=== PATIENT | male | born 1945 | race Asian ===

== ENCOUNTER 2017-09-23 11:36 | Emergency (ER) | payer OTHER ==
[~2017-09-23] VITALS: Ht 182.9 cm; Wt 88.5 kg
[~2017-09-23 11:36] MED LIST: CELLCEPT500 MG OR; CLONIDINE0.3 MG PO; CLOP75TA2 PO; LABETALOL300 MG OR; MAGOX 400400 MG PO; MINO10TA PO; NEXIUM20 M1 PO; TYLENOL EXTRA500 MG OR
[2017-09-23 11:54] VITALS: BP 148/62; TEMP 98.4
[2017-09-23 12:21] LABS: PLATELET COUNT 217 K/uL (142-355)
[2017-09-23 12:30] LABS: POTASSIUM 4.3 mmol/L (3.6-5.2)
== END 2017-09-23 13:20 | disposition home or self-care (01) ==
LOC: ED 11:36
DX: H53.2 Diplopia (principal); J32.0 Chronic maxillary sinusitis; E11.9 Type 2 diabetes mellitus without complications
CPT/HCPCS: 36415; 80053; 83036; 85027; 93005; 99283

== ENCOUNTER 2018-01-16 15:40 | Outpatient (CLI) | payer OTHER | END 2018-01-16 21:59 | disposition home or self-care (01) | LOC: LABW 15:40 | DX: Z79.891 Long term (current) use of opiate analgesic (principal); Z51.81 Encounter for therapeutic drug level monitoring | CPT/HCPCS: 80307 ==

== ENCOUNTER 2018-01-25 14:54 | Outpatient (CLI) | payer OTHER | END 2018-01-25 22:07 | disposition home or self-care (01) | LOC: RAD 14:54 | DX: M25.552 Pain in left hip (principal); M25.551 Pain in right hip ==

== ENCOUNTER 2018-02-26 12:50 | Outpatient (CLI) | payer OTHER ==
[2018-02-26 13:19] LABS: PLATELET COUNT 243 K/uL (142-355)
[2018-02-26 13:33] LABS: POTASSIUM 4.6 mmol/L (3.6-5.2)
== END 2018-02-26 20:22 | disposition home or self-care (01) ==
LOC: LABW 12:50
PROVIDERS: Internal Medicine Nephrology
DX: I10 Essential (primary) hypertension (principal); E11.9 Type 2 diabetes mellitus without complications; E55.9 Vitamin D deficiency, unspecified
CPT/HCPCS: 36415; 80053; 80061; 80197; 82306; 82570; 83970; 84100; 84155; 85027

== ENCOUNTER 2018-07-20 13:04 | Outpatient (CLI) | payer OTHER ==
[2018-07-20 13:57] LABS: POTASSIUM 5.1 mmol/L (3.6-5.2)
[2018-07-20 14:00] LABS: PLATELET COUNT 262 K/uL (142-355)
== END 2018-07-20 19:26 | disposition home or self-care (01) ==
LOC: LABW 13:04
PROVIDERS: Internal Medicine
DX: R79.89 Other specified abnormal findings of blood chemistry (principal)
CPT/HCPCS: 36415; 80053; 85027

== ENCOUNTER 2018-08-29 09:56 | Outpatient (CLI) | payer OTHER ==
[2018-08-29 10:33] LABS: PLATELET COUNT 208 K/uL (142-355)
[2018-08-29 10:53] LABS: POTASSIUM 4.4 mmol/L (3.6-5.2)
== END 2018-08-29 19:36 | disposition home or self-care (01) ==
LOC: LABW 09:56
PROVIDERS: Internal Medicine Nephrology
DX: I10 Essential (primary) hypertension (principal); Z94.0 Kidney transplant status; E11.9 Type 2 diabetes mellitus without complications
CPT/HCPCS: 36415; 80053; 80061; 80197; 82570; 83970; 84100; 84155; 84436; 84443; 84479; 85027

== ENCOUNTER 2018-11-26 12:55 | Outpatient (CLI) | payer OTHER ==
[2018-11-26 14:03] LABS: PLATELET COUNT 227 K/uL (142-355)
== END 2018-11-26 20:02 | disposition home or self-care (01) ==
LOC: LABW 12:55
PROVIDERS: Internal Medicine Hematology & Oncology
DX: C61 Malignant neoplasm of prostate (principal); E61.1 Iron deficiency
CPT/HCPCS: 36415; 84153; 85027

== ENCOUNTER 2019-01-22 11:04 | Outpatient (CLI) | payer OTHER ==
[2019-01-22 11:51] LABS: PLATELET COUNT 263 K/uL (142-355)
[2019-01-22 12:19] LABS: POTASSIUM 5.5 mmol/L (3.6-5.2)
== END 2019-01-22 22:47 | disposition home or self-care (01) ==
LOC: LABW 11:04
PROVIDERS: Internal Medicine Nephrology
DX: I12.9 Hypertensive chronic kidney disease with stage 1 through stage 4 chronic kidney disease, or unspecified chronic kidney disease (principal); N18.9 Chronic kidney disease, unspecified; Z94.0 Kidney transplant status; I73.9 Peripheral vascular disease, unspecified; F17.200 Nicotine dependence, unspecified, uncomplicated; E55.9 Vitamin D deficiency, unspecified; E11.9 Type 2 diabetes mellitus without complications
CPT/HCPCS: 36415; 80053; 84436; 84443; 84479; 85027

== ENCOUNTER 2019-01-25 08:14 | Outpatient (CLI) | payer OTHER ==
[2019-01-25 10:22] LABS: POTASSIUM 5.1 mmol/L (3.6-5.2)
== END 2019-01-25 19:30 | disposition home or self-care (01) ==
LOC: LABW 08:14
PROVIDERS: Internal Medicine
DX: N19 Unspecified kidney failure (principal)
CPT/HCPCS: 36415; 80048

== ENCOUNTER 2019-02-13 09:40 | Outpatient (CLI) | payer OTHER ==
[2019-02-13 09:57] LABS: PLATELET COUNT 239 K/uL (142-355)
[2019-02-13 10:07] LABS: POTASSIUM 5.2 mmol/L (3.6-5.2)
== END 2019-02-13 22:23 | disposition home or self-care (01) ==
LOC: LABW 09:40
PROVIDERS: Internal Medicine Nephrology
DX: I12.9 Hypertensive chronic kidney disease with stage 1 through stage 4 chronic kidney disease, or unspecified chronic kidney disease (principal); N18.9 Chronic kidney disease, unspecified; Z94.0 Kidney transplant status; I73.9 Peripheral vascular disease, unspecified; F17.200 Nicotine dependence, unspecified, uncomplicated; E11.9 Type 2 diabetes mellitus without complications; E55.9 Vitamin D deficiency, unspecified
CPT/HCPCS: 36415; 80053; 81000; 82570; 84100; 84155; 85027

== ENCOUNTER 2019-02-26 13:23 | Outpatient (CLI) | payer OTHER ==
[2019-02-26 13:50] LABS: PLATELET COUNT 247 K/uL (142-355)
== END 2019-02-26 19:25 | disposition home or self-care (01) ==
LOC: LABW 13:23
PROVIDERS: Internal Medicine Hematology & Oncology
DX: C61 Malignant neoplasm of prostate (principal); E61.1 Iron deficiency
CPT/HCPCS: 36415; 84153; 85027

== ENCOUNTER 2019-04-30 11:33 | Outpatient (CLI) | payer OTHER ==
[2019-04-30 12:06] LABS: PLATELET COUNT 222 K/uL (142-355)
[2019-04-30 12:21] LABS: POTASSIUM 4.9 mmol/L (3.6-5.2)
== END 2019-04-30 22:32 | disposition home or self-care (01) ==
LOC: LABW 11:33
PROVIDERS: Nurse Practitioner Family
DX: N19 Unspecified kidney failure (principal); R79.89 Other specified abnormal findings of blood chemistry; Z79.891 Long term (current) use of opiate analgesic
CPT/HCPCS: 36415; 80048; 80069; 84550; 85027; 85651; 86140

== ENCOUNTER 2019-05-28 18:11 | Outpatient (CLI) | payer OTHER | END 2019-05-28 23:59 | LOC: LAB 18:11 | DX: C61 Malignant neoplasm of prostate (principal) | CPT/HCPCS: 36415; 84153 ==

== ENCOUNTER 2019-07-25 15:43 | Emergency (ER) | payer OTHER ==
[~2019-07-25] VITALS: Ht 182.9 cm; Wt 93.4 kg
[2019-07-25 17:11] LABS: SODIUM 134 mmol/L (136-145)
[2019-07-25 17:40] LABS: PLATELET COUNT 244 K/uL (142-355)
[2019-07-25 19:03] VITALS: BP 125/76; TEMP 98.1
== END 2019-07-25 19:04 | disposition home or self-care (01) ==
LOC: ED 15:43
PROVIDERS: Emergency Medicine
DX: S09.8XXA Other specified injuries of head, initial encounter (principal); E11.649 Type 2 diabetes mellitus with hypoglycemia without coma; Z94.0 Kidney transplant status; W01.198A Fall on same level from slipping, tripping and stumbling with subsequent striking against other object, initial encounter; Y92.89 Other specified places as the place of occurrence of the external cause
CPT/HCPCS: 80053; 81000; 82550; 84484; 85027; 93005; 99283; J7060

== ENCOUNTER 2019-08-17 03:13 | Outpatient (CLI) | payer OTHER | END 2019-08-17 03:17 | disposition short-term general hospital (02) | LOC: AMB 03:13 | DX: R06.89 Other abnormalities of breathing (principal); I46.9 Cardiac arrest, cause unspecified | CPT/HCPCS: A0425; A0427 ==

== ENCOUNTER 2019-08-17 03:22 | Emergency (ER) | payer OTHER ==
[~2019-08-17] VITALS: Ht 182.9 cm; Wt 93.4 kg
[2019-08-17 03:58] LABS: PLATELET COUNT 260 K/uL (142-355)
[2019-08-17 04:02] LABS: POTASSIUM 4.8 mmol/L (3.6-5.2); SODIUM 135 mmol/L (136-145)
[2019-08-17 05:35] VITALS: BP 184/76; TEMP 98.2
== END 2019-08-17 05:35 | disposition short-term general hospital (02) ==
LOC: ED 03:22
PROVIDERS: Family Medicine
PROC: 0T9B70Z Drainage of Bladder with Drainage Device, Via Natural or Artificial Opening (ICD-10-PCS; principal; 2019-08-17)
PROC: 0D9670Z Drainage of Stomach with Drainage Device, Via Natural or Artificial Opening (ICD-10-PCS; 2019-08-17)
PROC: 0BH17EZ Insertion of Endotracheal Airway into Trachea, Via Natural or Artificial Opening (ICD-10-PCS; 2019-08-17)
PROC: 5A12012 Performance of Cardiac Output, Single, Manual (ICD-10-PCS; 2019-08-17)
PROC: 5A1935Z Respiratory Ventilation, Less than 24 Consecutive Hours (ICD-10-PCS; 2019-08-17)
DX: I21.09 ST elevation (STEMI) myocardial infarction involving other coronary artery of anterior wall (principal); I46.9 Cardiac arrest, cause unspecified; R56.9 Unspecified convulsions; F17.210 Nicotine dependence, cigarettes, uncomplicated
CPT/HCPCS: 43754; 51702; 80053; 82550; 84484; 85027; 85379; 93005; 96360; 96365; 96368; 96374; 96375; 99285; C1726; J2250; J3360